=== PATIENT | female | born 1970 | race Caucasian/White ===

== ENCOUNTER 2024-06-23 13:41 | Outpatient (REF) | payer OTHER, SELFPAY ==
--- OUTSIDE RECORDS SUMMARY | 2024-06-23 15:45 | XMS_ITS | Clinical Summary ---
Author Organization Patient Business Ser [facility] Address [address] [place] [address] Care Team Providers Care Store Person Name Role Phone Lona Buchanan MD Primary Care Prov ider Allergies Active Allergy Reactions Criticality Noted Date Comments Amitriptyline Hallucinations 12/02/2016 auditory Pregabalin Other 09/01/2012 Mood changes Medications Medication Sig Dispensed Refills Start Date End Date Status ibuprofen (ADVIL,MOTRIN) 600 mg tablet TAKE 1 TABLET BY MOUTH EVERY 8 HOURS NEEDED FOR PAIN 12/22/2023 Active prednisoLONE acetate (PRED FORTE) 1 % ophthalmic suspension INSTILL 1 DROP INTO LEFT EYE 4 TIMES A DAY X 4 DAYS THEN STOP 09/08/2023 Active buPROPion SR (WELLBUTRIN SR) 100 mg 12 hr tablet Take 1 tablet (100 mg total) by mouth 1 (one) time each day. 08/20/2023 Active zolpidem (AMBIEN) 10 mg tablet Take 1 tablet (10 mg total) by mouth at bedtime as needed. Max Daily Amount: 10 mg 09/04/2022 Active cetirizine (ZyrTEC) 10 mg tablet Take 1 tablet (10 mg total) by mouth 1 (one) time each day. 10/30/2021 Active lurasidone (Latuda) 20 mg tablet Take 20 mg by mouth daily. 11/17/2020 Active Active Problems Problem Noted Date Diagnosed Date Class 2 obesity due to exces s calories without serious comorbidity with body mass index (BMI) of 36.0 to 36.9 in adult 05/04/2024 Cervical spondylosis 05/22/2023 Overview (05/04/2024): Last Assessment & Plan: Ms. Catalan describes a posterior cervical crunching when she moves her head. She thought it was related to the screws that Dr. Lopez did put in. I showed her x-rays of her neck and explained that all of the hardware was in the anterior neck. She was relieved. She is also describing a pulling sensation in the lower neck and upper chest as well as tingling stabbing burning sensation in the arms. She is neurologically intact with a faint Irais sign on the right. She will start physical therapy and come back in and see us if things are not improving. Cervical polyp 12/11/2020 Overview (05/04/2024): Last Assessment & Plan: Discussed recommendation for removal. Patient in agreement. To return for cervical polypectomy. 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 Multiple thyroid nodules 01/26/2019 COPD, mild 06/11/2013 Bipolar affective disorder 08/20/2012 Overview (05/04/2024): Follows at [facility], on Clonazepam Fibromyalgia 08/20/2012 Vitamin D deficiency 11/05/2010 Cervical disc herniation 10/16/2010 Cervical stenosis of spinal canal 10/16/2010 Lumbar facet arthropathy 10/16/2010 Anxiety 10/18/2008 Callus of foot 10/18/2008 Constipation 10/18/2008 Depression 10/18/2008 Immunizations Name Administration Dates Next Due Influenza Quadravalent, MDCK , 0.5ml, preservative free (Flucelvax) 6mo and older 04/27/2019,05/07/2018 Influenza trivalent, 0.5mL, preservative free (Fluarix; FluLaval; Fluzone) ages 6mo and older (Afluria) 3 years and older 01/07/2017,02/28/2016,03/31/2015,05/03,02/02/2012,03/19/2011 Pneumococcal polysaccharide 23 valent (Pneumovax 23) 2yo and older 12/31/2013 Td Tetanus diptheria (Tdvax) 7yo and older 12/30/2018 Tdap Tetanus diptheria acell ular pertussis (Boostrix; Adacel) 7yo and older 05/02/2016,10/18/2008 Surgical History Surgery Date Site/Laterality Comments ECTOPIC SURGERY PROCEDURE: HISTORICAL ECTOPIC SURGERY COLONOSCOPY 06/2010 PROCEDURE: NM COLONOSCOPY FLX DX W/COLLJ SPEC WHEN PFRMD OTHER SURGICAL HISTORY PROCEDURE: NM ANES CERVICAL SPINE & CORD W/PATIENT SITTING; COMMENT: disectomy,done at [facility] 2 yrs ago, Dr. Aguirre NECK SURGERY 12/03/2019 PROCEDURE: HISTORICAL NECK SURGERY; COMMENT: C3-[address] Thompson's Medical History Medical History Date Comments Esophageal reflux DX:Esophageal reflux COPD, mild (CMS/HCC) 06/11/2013 DX:COPD, mi ld ([facility]) Tobacco use disorder DX:Tobacco use disorder Family History Medical History Relation Name Comments No Known Problems Brother Ta No Known Problems Daughter 1 No Known Problems Daughter 2 Esophageal cancer Father smoker No Known Problems Half-Brother 1 Bruno half pat ernal brother No Known Problems Half-Brother 2 Manas half pat ernal brother No Known Problems Half-Brother 3 Mikel half mat ernal brother No Known Problems Half-Sister [place] half pater nal sister No Known Problems Maternal Grandfather No Known Problems Maternal Grandmother Diabetes Mother Heart failure Mother No Known Problems Paternal Grandfather No Known Problems Paternal Grandmother Leukemia Sister 1 Pat No Known Problems Sister 2 Bell Breast cancer Neg Hx Colon cancer Neg Hx Glaucoma Neg Hx Macular degeneration Neg Hx Ovarian cancer Neg Hx Strabismus Neg Hx Relation Name Status Comments Brother Ta Alive Daughter 1 Alive Daughter 2 Alive Father Half-Brother 1 Bruno Alive Half-Brother 2 Manas Alive Half-Brother 3 Mikel Alive Half-Sister [place] Alive Maternal Grandfather Maternal Grandmother (Age 99) Mother Alive Paternal Grandfather Paternal Grandmother Sister 1 Pat Alive Sister 2 Bell Alive Social History Tobacco Use Types Packs/Day Years Used Date Smoking Tobacco: Former Smokeless Tobacco: Never Alcohol Use Standard Drinks/Week Comments No 0 (1 standard drink = 0.6 oz pur e alcohol) Sex and Gender Information Value Date Recorded Sex Assigned at Not on file Gender Identity Not on file Sexual Orientation Not on file Obstetrics History Last Filed Vital Signs Vital Sign Reading Time Taken Comments Blood Pressure 120/60 02/17/2024 3:08 PM EDT Pulse 102 02/17/2024 3:08 PM EDT Temperature - - Respiratory Rate - - Oxygen Saturation - - Inhaled Oxygen Concentration - - Weight 98.8 kg (217 lb 12.8 oz) 02/17/2024 3:08 PM EDT Height 165.1 cm (5' 5 ) 02/17/2024 3:08 PM EDT Body Mass Index 36.24 02/17/2024 3:08 PM EDT Plan of Treatment Upcoming Encounters Date Type Department Care Team (Late st Contact Info) Description 07/16/2024 2:30 PM EST Evaluation Outpatient Rehabilitation - [address] [phone] Yosi Rhodes, PT [address] [place] [address] 07/21/2024 4:10 PM EST Appointment Radiology Department - [address] [phone] 12/20/2024 3:00 PM EDT Office Visit Adult Medicine [address] [phone] Lona Buchanan MD [address] [place] [address] Health Maintenance Due Date Last Done Comments Hepatitis B Vaccines (1 of 3 - 19+ 3-dose series) 1989 Pneumococcal Vaccine: Pediatrics (0 to 5 Years) and At-Risk Patients (6 to 64 Years) (2 of 2 - PCV) 12/31/2014 12/31/2013 Colorectal Cancer Screening: FIT-DNA (Cologuard) 05/18/2020 Social Influencers of Health Screening 05/18/2020 Zoster Vaccines (1 of 2) 2020 COVID-19 Vaccine ( season) 2024 Influenza Vaccine (#1) 2024 9, 05/07/2018, 01/07/2017, Additional history exists Depression Screening 06/11/2024 06/11/2023 Breast Cancer Screening 07/11/2025 07/11/19 24, 07/05/2022, 07/03/2021, Additional history exists Cervical Cancer Screening: HPV 12/11/2025 12/11/2020 DTaP,Tdap,and Td Vaccines (4 - Td or Tdap) 12/30/2028 12/30/2018, 05/02/2016, 10/18/2008 Cholesterol Screening (Lipid Panel) 02/22/2029 02/23/2024, 02/23/2024 Colorectal Cancer Screening: Colonoscopy Discontinued 10/09/2021 HIV Screening Completed 10/02/2022 Hepatitis C Screening Completed 10/02/2022 HIB Vaccines Aged Out No longer eligi ble based on patient's age to complete this topic HPV Vaccines Aged Out No longer eligi ble based on patient's age to complete this topic Hepatitis A Vaccines Aged Out No long er eligible based on patient's age to complete this topic IPV Vaccines Aged Out No longer eligi ble based on patient's age to complete this topic MMR Vaccines Aged Out No longer eligi ble based on patient's age to complete this topic Meningococcal ACWY Vaccine Aged Out N o longer eligible based on patient's age to complete this topic RSV Immunization Patients Under 20 months Aged Out No longer eligible based on patient's age to complete this topic Varicella Vaccines Aged Out No longer eligible based on patient's age to complete this topic Procedures Procedure Name Priority Date/Time Associated Diagnosis Comments LIPID PANEL Routine 02/23/2024 SCREENING MAMMOGRAPHY BI 2-VIEW BREAST INC CAD Routine 07/11/2023 3:59 PM EST Encounter for screening mammogram for malignant neoplasm of breast DEPRESSION SCREENING Routine 06/11/2023 HEPATITIS C SCREENING Routine 10/02/2022 HIV SCREENING Routine 10/02/2022 COLONOSCOPY Routine 10/09/2021 HM HPV Routine 12/11/2020 from Last 3 Months or Most Recently Relevant to Health Maintenance Results * (ABNORMAL) Lipid panel (02/23/2024) LDL/HDL Ratio 5(A) 0 - 4 Triglycerides 182(A) 0 - 150 mg/dL Cholesterol 199 0 - 200 mg/dL HDL 44 40 mg/dL LDL Cholesterol 119(A) 0 - 100 mg/dL Blood Venous blood specimen / Unknown Historical Provider LAB BLOOD ORDERAB LES * SCREENING MAMMOGRAPHY BI 2-VIEW BREAST INC CAD (07/11/2023 3:59 PM EST) Anatomical Region Laterality Modality Radiographic Kendra ging 07/05/2022 3:28 PM EST Narrative 07/14/2023 7:28 AM EST This is a summary report. The complete report is available in the patient's medical record. If you cannot access the medical record, please contact the sending organization for a detailed fax or copy. Full field digital screening tomosynthesis mammography, reviewed with CAD and compared to previous mammograms dating back to 06/15/2018 with most recent of 07/05/2022. The breast tissue is heterogeneously dense, limiting sensitivity. No suspicious mass, architectural distortion or suspicious calcifications are identified. IMPRESSION: : Dense breast tissue, limiting the sensitivity of mammography. No mammographic evidence of malignancy. BIRADS 1-Negative; N. 5 year breast cancer risk assessment 0.8 % Lifetime breast cancer risk assessment 6.8 % Breast cancer risk category Low (<15%) Procedure Note Yarelis Blackmon MD - 01/05/2024 This is a summary report. The complete report is available in thepatient's medical record. If you cannot access the medical record, pleasecontact the sending organization for a detailed fax or copy. Full field digital screening tomosynthesis mammography, reviewed with CADand compared to previous mammograms dating back to 06/15/2018 with mostrecent of 07/05/2022. The breast tissue is heterogeneously dense, limitingsensitivity. No suspicious mass, architectural distortion or suspiciouscalcifications are identified. IMPRESSION: : Dense breast tissue, limiting the sensitivity of mammography. Nomammographic evidence of malignancy. BIRADS 1-Negative; N. 5 year breast cancer risk assessment 0.8 % Lifetime breast cancer risk assessment 6.8 % Breast cancer risk category Low (<15%) Malcolm Shukla DO IMG XR PROCEDURES * Depression Screening (06/11/2023) [facility] Depression Screening abstracted Historical Provider [facility] * HIV Screening (10/02/2022) [facility] HIV Screening abstracted [facility] Provider [facility] * Hepatitis C Screening (10/02/2022) [facility] Hepatitis C Screening abstracted Historical Provider [facility] * Colonoscopy (10/09/2021) [facility] Colonoscopy no interpretation , abstracted Anatomical Region Laterality Modality Other Historical Provider [facility] * Cervical Cancer Screening: HPV (12/11/2020) [facility] Cervical Cancer Screening: HPV negative, abstracted Historical Provider [facility] E from Last 3 Months or Most Recently Relevant to Health Maintenance Care Teams Store Person Relationship Specialty Start Date End Date Lona Buchanan MD PCP - General Internal Medicine 01/15/22
[2024-06-23 18:21] LABS: MANUAL DIFF FLAG NO
[2024-06-23 18:30] LABS: Basophils Absolute Auto 0.1 X10*3/uL (0.0-0.2); Basophils Percent Auto 0.7 % (0-2); Eosinophils Absolute Auto 0.2 X10*3/uL (0.0-0.4); Eosinophils Percent Auto 2.2 % (0-4); Hematocrit 39.5 % (37.0-47.0); Hemoglobin 12.7 g/dl (12.0-16.0); Imm Gran Abs Auto 0.03 X10*3/uL (0.00-0.03); Imm Gran Pct Auto 0.3 % (0.0-0.4); Lymphocytes Absolute Auto 2.8 X10*3/uL (1.2-4.9); Lymphocytes Percent Auto 32.5 % (20-40); Mean Corpuscular HGB Conc 32.2 g/dl (31.0-35.0); Mean Corpuscular Hemoglobin 26.7 pg (27.0-33.0); Mean Platelet Volume 11.1 fL (9.4-12.3); Monocytes Absolute Auto 0.5 X10*3/uL (0.1-1.2); Monocytes Percent Auto 5.9 % (2-11); Neutrophils Percent Auto 58.4 % (45-73); Platelet Count 285 X10*3/uL (160-400); Red Blood Count 4.76 X10*6/uL (4.20-5.50); Red Cell Distribution Width 13.6 % (11.0-16.0); White Blood Count 8.6 X10*3/uL (4.8-10.8)
[2024-06-23 18:45] LABS: Alanine Aminotransferase 68 U/L (0-31); Aspartate Amino Transferase 40 U/L (5-31); Estimated Glomerular Filt Rate > 60
== END 2024-06-23 13:42 | disposition home or self-care (01) ==
LOC: HO.HKASLDS 13:41
PROVIDERS: PCP Internal Medicine Rheumatology; Visit Provider Internal Medicine Rheumatology
DX: M17.0 Bilateral primary osteoarthritis of knee (principal); M18.0 Bilateral primary osteoarthritis of first carpometacarpal joints
CPT/HCPCS: 36415; 82565; 84450; 84460; 85025; 99212